=== PATIENT | female | born 1960 | race Caucasian/White ===

== ENCOUNTER → 2019-10-13 06:48 | Outpatient (CLI) | payer BC, SELFPAY ==
[2019-10-13 13:11] LABS: Anion Gap 14.5 mEq/L (5-15); Blood Urea Nitrogen 18 mg/dL (7-18); Calcium 8.3 mg/dL (8.5-10.1); Carbon Dioxide 27 mmol/L (21.0-32.0); Chloride 104 mmol/L (98-107); Chol/HDL Ratio 2.6 (1-3.5); Cholesterol 174 mg/dL (140-200); Creatinine,Serum 0.62 mg/dL (0.55-1.02); Estimated Glomerular Filt Rate 99 ml/min (>60); GFR (African American) 120 ML/MIN (>60); Glucose 80 mg/dL (74-106); HDL Cholesterol 67 mg/dL (29-89); LDL Cholesterol 99 mg/dL (0-130); Potassium 4.5 mmoL/L (3.5-5.1); Sodium 141 mmol/L (136-145); Thyroid Stimulating Hormone 1.25 uIU/ml (0.358-3.740); Triglycerides 42 mg/dL (30-200); VLDL Cholesterol 8 mg/dL (0-40)
[2019-10-16 05:41] LABS: Creatinine, Urine 29.6 mg/dL (Not Estab.)
[2019-10-16 16:45] LABS: Microalbumin, Urine <3.0 ug/mL (Not Estab.)
== END ==
PROVIDERS: PCP Family Medicine; Visit Provider Family Medicine
DX: E78.00 Pure hypercholesterolemia, unspecified (principal); I10 Essential (primary) hypertension
CPT/HCPCS: 36415; 80048; 80061; 82043; 82570; 84443

== ENCOUNTER → 2023-07-23 10:39 | Outpatient (CLI) | payer BC, SELFPAY ==
--- NOTE | 2023-07-23 | XR_ITS ---
PROCEDURE INFORMATION: Exam: XR Left Foot Exam date and time: 07/23/2023 10:52 AM Age: 63 years old Clinical indication: Pain; Foot; Left; Additional info: Pain in top of left foot, swelling TECHNIQUE: Imaging protocol: Radiologic exam of the left foot. Views: 3 or more views. COMPARISON: No relevant prior studies available. FINDINGS: Bones/joints: There appears to be a horizontally lucency along the distal fibular tip. This is only seen on the lateral view. Dedicated ankle radiographs are recommended to assess for fracture versus structure overlap. Otherwise, no visible fracture or dislocation. Soft tissues: Normal. IMPRESSION: 1. There appears to be a horizontally lucency along the distal fibular tip. This is only seen on the lateral view. Dedicated ankle radiographs are recommended to assess for fracture versus structure overlap. 2. Otherwise, no visible fracture or dislocation.
== END ==
PROVIDERS: PCP Family Medicine; Visit Provider Family Medicine
DX: M79.672 Pain in left foot (principal)
CPT/HCPCS: 73630

== ENCOUNTER → 2023-08-01 07:10 | Outpatient (CLI) | payer BC, SELFPAY ==
--- NOTE | 2023-08-01 07:40 | MR_ITS ---
FINAL REPORT CLINICAL HISTORY: .left 1st metatarsal foot pain, no injury FINDINGS: Multiplanar MR imaging of the foot was performed without contrast. The bony structures are intact without evidence of fracture, bone bruise or marrow edema. There are mild degenerative changes. A small osteochondral lesion is seen at the head of the first metatarsal. The flexor and extensor tendons are intact. No ligamentous injury is identified. The musculature is intact. The plantar aponeurosis is intact. No soft tissue mass or cyst is identified. IMPRESSION: No acute bony abnormality identified. Small osteochondral lesion at the head of the first metatarsal. Reviewed, Interpreted and Dictated by Niko Mistry III, MD Transcribed by Majo Conley Authenticated and [facility]
== END ==
PROVIDERS: PCP Family Medicine; Visit Provider Family Medicine
DX: M79.672 Pain in left foot (principal)
CPT/HCPCS: 73718

== ENCOUNTER → 2023-09-09 08:44 | Outpatient (CLI) | payer BC, SELFPAY ==
--- NOTE | 2023-09-09 08:47 | XR_ITS ---
FINAL REPORT CLINICAL HISTORY: Foot pain FINDINGS: AP, oblique and lateral views of the left foot were obtained. There is no prior exam for comparison. There is no acute fracture or dislocation. There is multi joint degenerative disease, most pronounced in the midfoot. Soft tissues are normal. IMPRESSION: Multi joint degenerative disease. Reviewed, Interpreted and Dictated by Kathleen Padilla MD Transcribed by Mellisa Hernandez Authenticated and [facility]
== END ==
PROVIDERS: PCP Family Medicine; Visit Provider Podiatrist
DX: S92.302A Fracture of unspecified metatarsal bone(s), left foot, initial encounter for closed fracture (principal); Y99.9 Unspecified external cause status
CPT/HCPCS: 73630

== ENCOUNTER 2023-09-15 08:23 | Emergency (ER) | payer BC, SELFPAY ==
[2023-09-15 08:30] VITALS: BP 152/89; PULSE 66; RESP 20; TEMP 36.6; O2SAT 99; BMI 32.9
--- NOTE | 2023-09-15 08:54 | EXP.UTC ---
Discharge Plan Disposition Patient Disposition: Home, Self-Care Condition: Good Prescriptions Prescriptions: New cyclobenzaprine 10 mg tablet 10 mg PO TID PRN (Reason: muscle spasm) Qty: 15 0RF No Action estradiol 0.075 mg/24 hr patch semiweekly 1 patch topical WEEKLY lisinopril 10 mg tablet 10 mg PO DAILY meloxicam 15 mg tablet 15 mg PO DAILY Referrals Follow up/Referrals: Aldo Brown MD [Primary Care Provider] - See instructions Activity Restrictions/Add. Instructions Additional Instructions/Restrictions: *Not additional anti-inflammatory like Ibuprofen, motrin, aleve, advil with your prescribed Meloxicam. You can still take Tylenol every 4 hours as needed if you need something else for pain *Ice 20 minutes every 2 hours for the first 48 hours after the initial injury followed by moist heat every 20 minutes 3-4 times a day to affected area *Muscle relaxer every 8 hours as needed for muscle spasms but remember, it WILL cause drowsiness You cannot take it and drive, operate machinery or care for small children. *Keep this area active, no movement leads to more stiffness, However take it easy and avoid heavy lifting pushing or pulling *Follow up with you family doctor immediately if no improvement for further treatment or any worsening of symptoms Straight to ER if any life threatening symptoms Clinical Impressions Clinical Impression: Low back pain Qualifiers: Chronicity: unspecified Back pain laterality: left Sciatica presence: without sciatica Qualified Code(s): M54.50 - Low back pain, unspecified Instructions Patient Instructions: Cyclobenzaprine, DI for Low Back Pain, Low Back Pain Discharge ED Provider: Veronica Richter [facility] General Stated complaint: pain in Lt side Mode of Arrival: Ambulatory Source of Information: Patient Limitations: No Limitations Time Seen by Provider: 09/15/23 08:54 Description of Symptoms (Recalled from Triage Doc. by RN): PATIENT C/O PAIN IN LEFT SIDE SINCE TUESDAY NIGHT HEENT Symptoms (Recalled from RN notes): No Resp Symptoms (Recalled from RN notes): No Skin Symptoms (Recalled from RN notes): No MS Symptoms (Recalled from RN notes): No Functional Status (Recalled from RN notes): WNL History of Present Illness Provider Complaint: Patient states that she has been having pain in her left lower back/side area that started after she was wearing a boot for a fractured foot States that she is not sure if she turned wrong or the boot is putting stress on her lower back Denies known injury Denies urinary symptoms States that pain is a constant ache that is worse with movement and she has not been able to get comfortable Denies hx of kidney stones and denies loss of control of bowel or bladder Related Data Home Medications Medication Instructions Recorded Confirmed estradiol 0.075 mg/24 hr 1 patch topical WEEKLY 08/22/23 09/15/23 semiweekly transdermal patch lisinopril 10 mg tablet 10 mg PO DAILY 08/22/23 09/15/23 meloxicam 15 mg tablet 15 mg PO DAILY 09/15/23 09/15/23 Previous Rx's Medication Instructions Recorded cyclobenzaprine 10 mg tablet 10 mg PO TID PRN muscle spasm #15 09/15/23 tabs Allergies Allergy/AdvReac Type Severity Reaction Status Date / Time No Known Allergies Allergy Verified 09/12/23 15:19 Worker's Comp Is this a Worker's Comp case?: No [facility] Disclaimer: The information contained in this section may have been updated after the patient was seen, as this information can be updated by other users. Surgical History History of dilation and curettage History of hysterectomy History of tooth extraction History of tubal ligation Social History Smoking Status: Never smoker alcohol intake: never substance use type: denies use current occupational status: employed Travel in the last 8 weeks
[2023-09-15 09:15] VITALS: BP 152/89; PULSE 66; RESP 20; TEMP 36.6; O2SAT 99
[2023-09-15 09:16] LABS: Apearance,Urine Cloudy (Clear); Bilirubin,Urine Negative (Negative); Blood, Urine Negative (Negative); Color,Urine Yellow (Yellow); Glucose,Urine (UA) Negative (Negative); Ketones,Urine Negative (Negative); Protein,Urine Negative (Negative); UTC Leukocyte Esterase,Urine Negative (Negative); UTC Nitrate,Urine Negative (Negative); Urobilinogen,Urine 0.2 EU/dl (0.2)
== END 2023-09-15 09:19 | disposition home or self-care (01) ==
PROVIDERS: Emergency Provider Nurse Practitioner; PCP Family Medicine
DX: M54.50 Low back pain, unspecified (principal)
CPT/HCPCS: 81003; 99204; 99212; G0463

== ENCOUNTER → 2023-10-14 09:56 | Outpatient (CLI) | payer BC, SELFPAY ==
--- NOTE | 2023-10-14 10:07 | XR_ITS ---
FINAL REPORT CLINICAL HISTORY: foot pain stress fracture COMPARISON: 09/09/2023 FINDINGS: LEFT FOOT Three views of the left foot demonstrate no acute fracture or dislocation. The visualized joint spaces are normally aligned. The soft tissues are unremarkable. IMPRESSION: No acute bony abnormality. Reviewed, Interpreted and Dictated by Anuel Lewis MD Transcribed by Aurea Herrera Authenticated and [facility]
== END ==
PROVIDERS: PCP Family Medicine; Visit Provider Podiatrist
DX: M79.672 Pain in left foot (principal); S92.312A Displaced fracture of first metatarsal bone, left foot, initial encounter for closed fracture
CPT/HCPCS: 73630